=== PATIENT | female | born 1990 | race Two or more races ===

== ENCOUNTER 2016-12-15 22:26 | Emergency (ER) | payer BC ==
[2016-12-15] MEDS ORDERED: FAMOTIDINE 20 MG TABLET ONE (23:23)
[2016-12-15] MEDS ORDERED: HYDROXYZINE PAMOATE 25 MG CAPSULE ONE (23:23)
== END 2016-12-16 00:58 | disposition home or self-care (01) ==
LOC: ED 22:26
DX: L50.0 Allergic urticaria (principal)
CPT/HCPCS: 99283 ×2; A9270 ×2